=== PATIENT | female | born 1990 | race Caucasian/White ===

== ENCOUNTER 2016-11-13 04:34 | Emergency (ER) | payer MEDICAID ==
[~2016-11-13] VITALS: Ht 172.7 cm; Wt 59.7 kg
[~2016-11-13 04:34] MED LIST: CYCL-36 PO; IBUP800 PO
[2016-11-13 04:46] VITALS: BP 146/84; PULSE 98; RESP 18; TEMP 98.4; O2SAT 99
[2016-11-13 06:05] VITALS: BP 140/79; PULSE 82; RESP 18; O2SAT 99
[2016-11-13 06:05] LABS: AUTOMATED NEUTROPHIL # 4.8 TH/MM3 (1.8-7.7); BASOPHIL # 0.1 TH/MM3 (0-0.2); BASOPHIL % 1.6 % (0.0-2.0); EOSINOPHIL # 0.1 TH/MM3 (0-0.4); EOSINOPHIL % 1.9 % (0.0-4.0); HEMATOCRIT 34.5 % (35.0-46.0); LYMPH % 24.7 % (9.0-44.0); LYMPHOCYTE # 1.9 TH/MM3 (1.0-4.8); MEAN CELL VOLUME 97.5 FL (80.0-100.0); MEAN CORPUSCULAR HEMOGLOBIN 32.1 PG (27.0-34.0); MEAN CORPUSCULAR HGB CONC 32.9 % (32.0-36.0); MONO % 8.6 % (0.0-8.0); NEUT % 63.2 % (16.0-70.0); PLATELET COUNT 212 TH/MM3 (150-450); RED BLOOD COUNT 3.54 MIL/MM3 (4.00-5.30); RED CELL DISTRIBUTION WIDTH 13.1 % (11.6-17.2); WHITE BLOOD COUNT 7.6 TH/MM3 (4.0-11.0)
[2016-11-13 06:12] LABS: POTASSIUM 3.5 MEQ/L (3.5-5.1)
[2016-11-13 06:15] LABS: BICARBONATE 23.8 MEQ/L (21.0-32.0)
--- NOTE | 2016-11-13 06:17 | PD ---
HPI Chief Complaint: Related Problem Time Seen by Provider: 05:48 Travel History International Travel<30 days: No Contact w/Intl Traveler<30days: No Traveled to known affect area: No History of Present Illness HPI The patient is a 26-year-old G2, P1, A0 female that came in tonight because of heavy bleeding vaginally. She had no bleeding earlier and no cramps she just started bleeding fairly heavily. She then quit. She denies any chest pain or shortness of breath. She does have nausea but she states she otherwise has nausea with her pregnancies. Her last missed her period was August 25. This puts her at 11-1/2 weeks. She denies any syncopal or near syncopal spells. She states that she is Rh- and got RhoGAM on her first . The patient has her first appointment with her brazing machine operator on the fifth of next month. PFSH Past Medical History Respiratory: Yes (BRONCHITIS) Tetanus Vaccination: > 5 Years Influenza Vaccination: No ?: LMP: 08/25/16 Menopausal: No : 2 Para: 1 Ovarian Cysts: Yes Past Surgical History Tonsillectomy: Yes (T & A A CHILD) Social History Alcohol Use: No Tobacco Use: Yes (/2 PPD) Substance Use: No Allergies-Medications (Allergen,Severity, Reaction): Coded Allergies: Red Dyes - Various (Verified Allergy, Intermediate, RASH, 11/13/16) Reported Meds & Prescriptions Reported Meds & Active Scripts Active No Active Prescriptions or Reported Medications Review of Systems Except as stated in HPI: all other systems reviewed are Neg Physical Exam Narrative GENERAL: The patient is alert, oriented 3 in no apparent distress. The blood pressure is 146/84 with a heart rate of 98 but the rest the vital signs are normal. SKIN: Focused skin assessment warm/dry. HEAD: Atraumatic. Normocephalic. EYES: Pupils equal and round. No scleral icterus. No injection or drainage. ENT: No nasal bleeding or discharge. Mucous membranes pink and moist. NECK: Trachea midline. No JVD. CARDIOVASCULAR: Regular rate and rhythm. No murmur appreciated. RESPIRATORY: No accessory muscle use. Clear to auscultation. Breath sounds equal bilaterally. GASTROINTESTINAL: Abdomen soft, non-tender, nondistended. Hepatic and splenic margins not palpable. The uterus is about 12 weeks in size and can be palpated easily in the pelvis. MUSCULOSKELETAL: No obvious deformities. No clubbing. No cyanosis. No edema. NEUROLOGICAL: Awake and alert. No obvious cranial nerve deficits. Motor grossly within normal limits. Normal speech. PSYCHIATRIC: Appropriate mood and affect; insight and judgment normal. GENITOURINARY: Normal external genitalia without lesions or erythema. Vaginal vault with a minute amount of blood and no other drainage. Cervical os was closed without drainage. No cervical motion tenderness. Uterus nontender and 12 weeks enlarged. Bilateral adnexa nontender without masses. Data Data Last Documented VS Vital Signs Date Time Temp Pulse Resp B/P Pulse Ox O2 Delivery O2 Flow Rate FiO2 11/13/16 06:05 82 18 140/79 99 Room Air 11/13/16 04:46 98.4 Orders Complete Blood Count With Diff (11/13/16 05:48) Basic Metabolic Panel (Bmp) (11/13/16 05:48) Complete Rh (11/13/16 05:48) Rhogam Only (11/13/16 05:48) Beta Hcg (Quant/Titer) (11/13/16 06:22) Labs Laboratory Tests Test 11/13/16 05:50 White Blood Count 7.6 TH/MM3 Red Blood Count 3.54 MIL/MM3 Hemoglobin 11.4 GM/DL Hematocrit 34.5 % Mean Corpuscular Volume 97.5 FL Mean Corpuscular Hemoglobin 32.1 PG Mean Corpuscular Hemoglobin 32.9 % Concent Red Cell Distribution Width 13.1 % Platelet Count 212 TH/MM3 Mean Platelet Volume 10.9 FL Neutrophils (%) (Auto) 63.2 % Lymphocytes (%) (Auto) 24.7 % Monocytes (%) (Auto) 8.6 % Eosinophils (%) (Auto) 1.9 % Basophils (%) (Auto) 1.6 % Neutrophils # (Auto) 4.8 TH/MM3 Lymphocytes # (Auto) 1.9 TH/MM3 Monocytes # (Auto) 0.7 TH/MM3 Eosinophils # (Auto) 0.1 TH/MM3 Basophils # (Auto) 0.1 TH/MM3 CBC Comment AUTO DIFF Differential Comment AUTO DIFF CONFIRMED Platelet Estimate NORMAL Platelet Morphology Comment NORMAL Sodium Level 138 MEQ/L Potassium Level 3.5 MEQ/L Chloride Level 105 MEQ/L Carbon Dioxide Level 23.8 MEQ/L Anion Gap 9 MEQ/L Blood Urea Nitrogen 5 MG/DL Creatinine 0.45 MG/DL Estimat Glomerular Filtration 170 ML/MIN Rate Random Glucose 89 MG/DL Calcium Level 8.6 MG/DL Blood Type A NEGATIVE Rho(D) Type NEGATIVE Blood Bank Comment MDM Medical Decision Making Medical Screen Exam Complete: Yes Emergency Medical Condition: Yes Medical Record Reviewed: Yes Interpretation(s) I used the point of care ultrasound we have here in emergency department and demonstrated to the patient that the fetus is alive. This gave her considerable relief. The heart beat was seen and the fetus was seen moving about. Differential Diagnosis Threatened AB, cervical ectopy bleeding, incomplete AB Narrative Course I cannot identify where the blood came from because there was no active bleeding. There was a significant amount of blood to make me doubt that this was cervical ectopy. The patient never had any cramps in the bleeding stopped completely. The ultrasound that I did at the bedside showed the fetus moving about with a good heartbeat. The patient was very relieved when she saw this. Because of the possibility that this is a threatened AB we will give RhoGAM. She is less than 20 weeks, she is approximately 11-1/2 weeks gestation. Diagnosis Primary Impression: Threatened Additional Impression: Rh negative status in [place] in first trimester Additional Instructions: Follow-up with your brazing machine operator. We will give you the beta titer in all the blood work that was done here for your brazing machine operator. Avoid any physically strenuous activities. Scripts No Active Prescriptions or Reported Meds Disposition: 01 DISCHARGE HOME Condition: Stable Slade Scherer MD November 13, 2016 06:17
[2016-11-13 06:20] LABS: HEMO FLAGS AUTO DIFF
[2016-11-13 06:41] LABS: PLATELET ESTIMATE SMEAR NORMAL (NORMAL); PLATELET MORPHOLOGY NORMAL (NORMAL); SCAN/DIFF AUTO DIFF CONFIRMED
[2016-11-13 06:56] VITALS: BP 127/62; PULSE 79; RESP 16; O2SAT 100
[2016-11-13 07:23] LABS: BETA HCG QUANT 28627 MIU/ML (0-5)
== END 2016-11-13 07:46 | disposition home or self-care (01) ==
LOC: PHED 04:34
DX: O20.0 Threatened abortion (principal); O36.0910 Maternal care for other rhesus isoimmunization, first trimester, not applicable or unspecified; O99.331 Smoking (tobacco) complicating pregnancy, first trimester; Z3A.11 11 weeks gestation of pregnancy
CPT/HCPCS: 80048; 84702; 85025; 90384; 96372; J2790